=== PATIENT | female | born 1965 | race Two or more races ===

== ENCOUNTER 2022-12-26 05:17 | Day surgery (SDC) | payer OTHER ==
[~2022-12-26] VITALS: Ht 160 cm; Wt 64.9 kg
[~2022-12-26 05:17] MED LIST: JANUVIA PO; LANTUS SOL100 UNIT/1
== END 2022-12-26 15:30 | disposition home or self-care (01) ==
LOC: CIR.AMB 05:17
PROVIDERS: ATTEND Surgery Surgery of the Hand
DX: M67.843 Other specified disorders of tendon, right hand (principal); E11.9 Type 2 diabetes mellitus without complications; Z20.822 Contact with and (suspected) exposure to COVID-19

== ENCOUNTER 2023-10-23 07:00 | Outpatient (CLI) | payer OTHER ==
[2023-10-23 10:10] LABS: PH,URINE 5.5 (5.0-8.0); URINE APPEARANCE Clear; URINE BILIRRUBIN Negative (NEGATIVE); URINE BLOOD Negative; URINE COLOR Yellow; URINE KETONE Negative (NEGATIVE); URINE LEUKOCYTE Negative; URINE NITRATE Negative; URINE PROTEIN Negative (NEGATIVE); URINE UROBILINOGEN 0.2 E.U./dl
[2023-10-23 10:14] LABS: URINE BACTERIA 498.8 uL (0.0-1933); URINE EPITHELIAL CELLS 12.9 uL (0.0-38.8); URINE WBC 6.6 uL (0.0-23.2)
[2023-10-23 10:21] LABS: URINE CAST 0.15 uL (0.0-1.40); URINE GLUCOSE >=1000 MG/DL (NEGATIVE); URINE RBC 0.7 uL (0.0-20.8)
[2023-10-23 10:23] LABS: HEMATOCRIT 35.9 % (36.0-45.00); HEMOGLOBIN 12.3 g/dL (12.0-15.00); MEAN CELL VOLUME 81.3 fL (80.00-100.00); MEAN CORPUSCULAR HEMOGLOBIN 27.8 pg (27.00-32.0); MEAN CORPUSCULAR HGB CONC 34.2 g/dl (32.0-36.0); PLATELET COUNT 272 K/uL (150-450); RED BLOOD COUNT 4.41 M/uL (4.00-6.00); RED CELL DISTRIBUTION WIDTH 14.3 % (11.5-14.5)
[2023-10-23] MEDS ORDERED: FAXIGA (10:38)
[2023-10-23 10:39] LABS: INR 0.97; PARTIAL THROMBOPLASTIN TIME 26.1 SECONDS (22.0-34.0)
[2023-10-23 10:44] LABS: PROTHROMBIN TIME 10.2 SECONDS (9.0-11.5)
[2023-10-23 11:03] LABS: ALBUMIN 4.1 gm/dL (3.4-5.0); BILIRUBIN TOTAL 0.5 mg/dL (0.3-1.2); CALCIUM 10.1 mg/dL (8.5-10.1); CREATININE SERUM 0.78 mg/dL (0.55-1.02); GFR 76.4; GLOBULINA 3.7 G/DL (2.4-3.5); POTASSIUM 4.25 mEq/L (3.5-5.1); TOTAL PROTEIN 7.8 gm/dL (6.4-8.2)
== END 2023-10-23 07:05 | disposition home or self-care (01) ==
LOC: LAB 07:00 → RAD 07:00 → LAB 07:05 → ADM 08:00 → CIR.AMB 10-30 08:00 → EDSTATUS 10-30 08:00 → CIR.AMB 10-30 09:00
PROVIDERS: ATTEND Surgery Surgery of the Hand
DX: M67.843 Other specified disorders of tendon, right hand (principal); Z03.818 Encounter for observation for suspected exposure to other biological agents ruled out; Z20.828 Contact with and (suspected) exposure to other viral communicable diseases; D68.9 Coagulation defect, unspecified; Z01.811 Encounter for preprocedural respiratory examination; Z01.810 Encounter for preprocedural cardiovascular examination

== ENCOUNTER 2023-12-04 05:26 | Day surgery (SDC) | payer OTHER ==
[~2023-12-04 05:26] MED LIST changes: +FAXIGA
[2023-12-04] MEDS ORDERED: BUPIVACAINE HCL/MPF 0.5% 30ML VIAL ONE (07:01)
[2023-12-04] MEDS ORDERED: CEFAZOLIN SODIUM 1,000 MG VIAL ONE (07:01)
[2023-12-04] MEDS ORDERED: BUPIVACAINE HCL/PF 0.25% 30ML VIAL InF ONE (08:00)
[2023-12-04] MEDS ORDERED: CEFAZOLIN SODIUM 1,000 MG VIAL IV ONE (08:00)
[2023-12-04] MEDS ORDERED: ISOPROPYL ALCOHOL 30 ML OUNCE TOP ONE (08:00)
== END 2023-12-04 10:30 | disposition home or self-care (01) ==
LOC: CIR.AMB 05:26
PROVIDERS: ATTEND Surgery Surgery of the Hand
DX: M67.843 Other specified disorders of tendon, right hand (principal); E11.9 Type 2 diabetes mellitus without complications

== ENCOUNTER 2024-07-22 06:10 | Day surgery (SDC) | payer OTHER ==
[2024-07-16 07:24] VITALS: BP 114/81
[2024-07-16 07:24] LABS: HEMATOCRIT 35.7 % (36.0-45.00); HEMOGLOBIN 12.1 g/dL (12.0-15.00); MEAN CELL VOLUME 82.7 fL (80.00-100.00); MEAN CORPUSCULAR HEMOGLOBIN 27.9 pg (27.00-32.0); MEAN CORPUSCULAR HGB CONC 33.8 g/dl (32.0-36.0); PLATELET COUNT 218 K/uL (150-450); RED BLOOD COUNT 4.32 M/uL (4.00-6.00); RED CELL DISTRIBUTION WIDTH 14.5 % (11.5-14.5)
[2024-07-16 07:37] LABS: URINE APPEARANCE Clear; URINE BILIRRUBIN Negative (NEGATIVE); URINE BLOOD Negative; URINE COLOR Yellow; URINE KETONE Negative (NEGATIVE); URINE LEUKOCYTE Negative; URINE NITRATE Negative; URINE PROTEIN Negative (NEGATIVE); URINE UROBILINOGEN 0.2 E.U./dl
[2024-07-16 07:41] LABS: URINE BACTERIA 939.9 uL (0.0-1933); URINE EPITHELIAL CELLS 29.2 uL (0.0-38.8); URINE RBC 3.9 uL (0.0-20.8); URINE WBC 16.9 uL (0.0-23.2)
[2024-07-16 07:50] LABS: CALCIUM 9.6 mg/dL (8.5-10.1); CREATININE SERUM 0.78 mg/dL (0.55-1.02); GFR 76.4; INR 0.97; PARTIAL THROMBOPLASTIN TIME 25.9 SECONDS (22.0-34.0); POTASSIUM 4.15 mEq/L (3.5-5.1); PROTHROMBIN TIME 10.6 SECONDS (9.0-11.5)
[2024-07-16 08:04] LABS: URINE GLUCOSE >=1000 MG/DL (NEGATIVE)
[~2024-07-22] VITALS: Ht 160 cm; Wt 64.9 kg
[~2024-07-22 06:10] MED LIST changes: +OZEMPIC0.25 MG/02
[2024-07-22] MEDS ORDERED: CEFAZOLIN SODIUM 1,000 MG VIAL ONE ×2 (09:12→09:19)
[2024-07-22] MEDS ORDERED: LIDOCAINE HCL 2% 20ML VIAL IJ ONE (10:41)
[2024-07-22] MEDS ORDERED: BUPIVACAINE HCL/Mpf 0.5% 10ML VIAL ONE (10:41)
[2024-07-22] MEDS ORDERED: TRIAMCINOLONE ACETONIDE 40 MG/ML VIAL ONE (10:57)
== END 2024-07-22 13:00 | disposition home or self-care (01) ==
LOC: CIR.AMB 06:10
PROVIDERS: ATTEND Surgery Surgery of the Hand
DX: M67.844 Other specified disorders of tendon, left hand (principal)